=== PATIENT | male | born 1960 | race Caucasian/White ===

== ENCOUNTER 2017-03-15 09:49 | Day surgery (SDC) | payer OTHER ==
[~2017-03-15 09:49] MED LIST: KETOROLAC TROMETHAMINE 0.45% 4 DROP/0.4 ML DROPERETTE OS PRN
[2017-03-15] MEDS: TETRACAINE HCL 0.5% OPH SOLN 2 ML OS PRN ×3 (10:08→10:35)
[2017-03-15] MEDS: CYCLOPENTOLATE 0.2%/PHENYLEPHRINE 1% OPH SOLN 2 ML OS PRN ×3 (10:09→10:31)
[2017-03-15] MEDS: TROPICAMIDE 1% OPH SOLN 3 ML OS PRN ×3 (10:09→10:30)
[2017-03-15] MEDS: BESIFLOXACIN HCL 0.6% OPH SUSP 5 ML BOTTLE OS PRN ×3 (10:10→11:06)
[2017-03-15] MEDS ORDERED: EPINEPHRINE INJ/PF 1 MG/1 ML AMPULE ONE (10:13)
[2017-03-15] MEDS ORDERED: CHONDR SU A NA/HYALUR INTRAOC KIT (SURGICARE) ONE (10:13)
[2017-03-15] MEDS ORDERED: LIDOCAINE 1% INJ-PF (10 MG/ML) 30 ML SDV ONE (10:13)
[2017-03-15] MEDS ORDERED: MIDAZOLAM 2 MG/2 ML INJ ONE (10:18)
--- NOTE | 2017-03-15 21:34 | [facility] OPERATIVE REPORT E ---
[facility] Operative Report NAME: CALEB BEACH AGE: 56Y DATE OF SURGERY: 03/15/2017 PREOPERATIVE DIAGNOSIS: CATARACT, LEFT EYE. POSTOPERATIVE DIAGNOSIS: CATARACT, LEFT EYE. OPERATION: Cataract extraction with Restora toric intraocular lens implant of the left eye. SURGEON: MINGO IRVIN M.D. ANESTHESIA: Topical. COMPLICATIONS: None. ESTIMATED BLOOD LOSS: None. PROCEDURE: After appropriate consent was obtained and calculations made, the patient was brought back to the operating room where the patient was prepped and draped in sterile fashion. A lid speculum was placed and attention was directed to a paracentesis where a paracentesis blade made a small incision. Viscoelastic was then used to inflate the anterior chamber. Next a 2.4 mm incision was made with the paracentesis blade. A continuous capsulorhexis forceps of approximately 5 mm was done using a cystitome and capsulorhexis forceps. Hydrodissection was carried out to make the lens freely mobile and then a divide and conquer technique was used to remove the lens with a CDE of approximately 7.44. Following this, the remaining cortical material was removed with irrigation/aspiration. After this the patient was then again marked. The marking procedure started in the preoperative holding area where 180 and 0 was marked with a marker. Now that the patient was in the operating room a 360-degree marker was used to teodoro the axis at approximately 180 degrees and a toric lens of 19.0 diopters SND1T4 was injected into the bag after filling with viscoelastic and rotating into proper position. The I/A was used to remove the viscoelastic material and the toric lens appeared to be appropriately aligned. A 10-0 nylon suture was used to close the corneal incision and TobraDex was instilled into the eye and a pressure patch was placed with a protective shield. The patient returned to postoperative recovery in stable condition. DICTATING PHYSICIAN: MINGO IRVIN M.D. 5139M 2127 PHY#: [id number] ID: [id number] JOB#: [id number] ACCT: [id number] cc:MINGO IRVIN M.D. >
--- NOTE | 2017-03-15 21:39 | [facility] DISCHARGE SUMMARY E ---
[facility] Discharge Summary NAME: CALEB BEACH AGE: 56Y ADMITTED: 03/15/2017 DISCHARGED: 03/15/2017 FINAL DIAGNOSIS: CATARACT, LEFT EYE. HISTORY/CLINIC COURSE: This is a 56-year-old male who underwent cataract extraction of the left eye with a Restora toric IOL without complication, woke up in postoperative recovery in stable condition. The patient underwent surgery because he was having trouble seeing words on TV and small print. Patient is to be on a regular diet. No bending at the waist, no heavy lifting. Patient should use the Besivance, Ilevro, and Durezol at 3 p.m. and 8 p.m., and sleep with a rigid shield. I will see him for 1 day postoperative tomorrow. DICTATING PHYSICIAN: MINGO IRVIN M.D. 5139M 2131 PHY#: [id number] ID: [id number] JOB#: [id number] ACCT: [id number] cc:MINGO IRVIN M.D. >
== END 2017-03-15 12:11 | disposition home or self-care (01) ==
LOC: SC 09:49
PROVIDERS: ATTEND Internal Medicine
PROC: 08RK3JZ Replacement of Left Lens with Synthetic Substitute, Percutaneous Approach (ICD-10-PCS; principal; 2017-03-15 11:30)
DX: H25.813 Combined forms of age-related cataract, bilateral (principal); Z79.82 Long term (current) use of aspirin
CPT/HCPCS: 66984; V2787; J2250; J3490 ×2; J0171; 142

== ENCOUNTER 2017-04-05 07:46 | Day surgery (SDC) | payer OTHER ==
[~2017-04-05 07:46] MED LIST changes: +KETOROLAC TROMETHAMINE 0.45% 4 DROP/0.4 ML DROPERETTE OD PRN; -KETOROLAC TROMETHAMINE 0.45% 4 DROP/0.4 ML DROPERETTE OS PRN
[2017-04-05] MEDS ORDERED: LIDOCAINE 1% INJ-PF (10 MG/ML) 30 ML SDV ONE (07:49)
[2017-04-05] MEDS ORDERED: CHONDR SU A NA/HYALUR INTRAOC KIT (SURGICARE) ONE (07:49)
[2017-04-05] MEDS ORDERED: EPINEPHRINE INJ/PF 1 MG/1 ML AMPULE ONE (07:49)
[2017-04-05] MEDS: CYCLOPENTOLATE 0.2%/PHENYLEPHRINE 1% OPH SOLN 2 ML OD PRN ×3 (08:10→08:33)
[2017-04-05] MEDS: TETRACAINE HCL 0.5% OPH SOLN 2 ML OD PRN ×3 (08:10→08:46)
[2017-04-05] MEDS: BESIFLOXACIN HCL 0.6% OPH SUSP 5 ML BOTTLE OD PRN ×4 (08:10→09:17)
[2017-04-05] MEDS: TROPICAMIDE 1% OPH SOLN 3 ML OD PRN ×3 (08:10→08:33)
[2017-04-05] MEDS ORDERED: MIDAZOLAM 2 MG/2 ML INJ ONE (08:32)
[2017-04-05] MEDS ORDERED: FENTANYL CITRATE INJ/PF 100 MCG/2 ML AMPUL ONE (08:32)
--- NOTE | 2017-04-05 19:19 | [facility] DISCHARGE SUMMARY E ---
[facility] Discharge Summary NAME: CALEB BEACH AGE: 56Y ADMITTED: 04/05/2017 DISCHARGED: 04/05/2017 HOSPITAL COURSE: This is a 56-year-old male who underwent cataract extraction of the right eye. DIAGNOSIS: CATARACT, RIGHT EYE WITH INSERTION OF A RESTOR TORIC INTRAOPERATIVE LENS. The patient underwent surgery because he was having trouble seeing road signs and small print. DISCHARGE INSTRUCTIONS: He should be on a regular diet. No bending at the waist, no heavy lifting. He should use Besivance, Ilevro, and Durezol at 3 p.m. and 8 p.m. and sleep with a rigid shield. I will see him for his 1 day postoperative tomorrow. DICTATING PHYSICIAN: MINGO IRVIN M.D. 5020M 1914 PHY#: [id number] ID: [id number] JOB#: [id number] ACCT: [id number] cc:MINGO IRVIN M.D. >
--- NOTE | 2017-04-05 19:19 | [facility] OPERATIVE REPORT E ---
[facility] Operative Report NAME: CALEB BEACH AGE: 56Y DATE OF SURGERY: 04/05/2017 ROOM: PREOPERATIVE DIAGNOSIS: CATARACT, RIGHT EYE. POSTOPERATIVE DIAGNOSIS: CATARACT, RIGHT EYE. OPERATION: Cataract extraction with ReSTOR Toric intraocular lens implant of the right eye. SURGEON: MINGO IRVIN M.D. ANESTHESIA: Topical. PROCEDURE: After obtaining appropriate consent, the patient's right eye was prepped and draped in sterile fashion as well as the surgeon in a sterile manner and cataract surgery was started. First a paracentesis blade was used to make a small side-port incision. Viscoelastic was used to inflate the anterior chamber. Next a 2.4 mm incision was made with the paracentesis blade. A continuous capsulorrhexis incision was made using a cystotome and Utrata forceps. Following this hydrodissection was carried out to make the lens fully loose and mobile and it was rotated 170 degrees. Following this, a tyvxdf-siw-xisokqt technique was used to phacoemulsify the lens with a CDE of 0.2. The remaining cortex was removed with irrigation/aspiration. Provisc was instilled into the capsular bag to inflate the bag. A SND1T4, 19.5 diopter lens was placed. The remaining viscoelastic material was removed with irrigation/aspiration. Following this, a 10-0 nylon suture was used to close the incision and it was found to be watertight. Vigamox was instilled in the eye and a protective shield was placed over the eye. The patient returned to the postoperative recovery in stable condition. DICTATING PHYSICIAN: MINGO IRVIN M.D. 5020M 1910 PHY#: [id number] ID: [id number] JOB#: [id number] ACCT: [id number] cc:MINGO IRVIN M.D. >
== END 2017-04-05 09:56 | disposition home or self-care (01) ==
LOC: SC 07:46
PROVIDERS: ATTEND Internal Medicine
PROC: 08RJ3JZ Replacement of Right Lens with Synthetic Substitute, Percutaneous Approach (ICD-10-PCS; principal; 2017-04-05 09:00)
DX: H25.811 Combined forms of age-related cataract, right eye (principal); Z96.1 Presence of intraocular lens; Z79.82 Long term (current) use of aspirin
CPT/HCPCS: 66984; V2788; J2250; J3490 ×2; J0171; J3010; 142